=== PATIENT | female | born 1990 | race African-American/Black ===

== ENCOUNTER 2018-05-15 11:43 | Inpatient (IN) | payer OTHER ==
[2018-05-15 12:05] VITALS: BMI 16.5
--- NOTE | 2018-05-15 13:44 | HP ---
Admission [facility] Chief Complaint: I WANT TO GO TO REHAB STRONG RECOMMEND THE PATIENT TO OBTAIN ART MEDICATION WHILE IN REHAB Allergies/Adverse Reactions: Allergies Allergy/AdvReac Type Severity Reaction Status Date / Time No Known Allergies Allergy Verified 05/15/18 13:50 History of Present Illness: 28 YEARS OLD FEMALE WITH LONG HISTORY OF COCAINE NICOTINE DEPENDENCE HAS HIV NONE COMPLIANCE WITH ART IS ADMITTED TO REHAB Exam Limitations: No Limitations - Ebola screening Have you traveled outside of the country in the last 21 days: No Have you had contact with anyone from an Ebola affected area: No Have you been sick,other than usual withdrawal symptoms: No Do you have a fever: No - Review of Systems Constitutional: Loss of Appetite, Unintentional Wgt. Loss, Unexplained wgt Loss EENT: reports: No Symptoms Reported Respiratory: reports: No Symptoms reported Cardiac: reports: No Symptoms Reported GI: reports: Poor Appetite : reports: No Symptoms Reported Musculoskeletal: reports: No Symptoms Reported Integumentary: reports: No Symptoms Reported Neuro: reports: No Symptoms reported Endocrine: reports: No Symptoms Reported Hematology: reports: No Symptoms Reported Psychiatric: reports: Judgement Intact, Orientated x3, Anxious, Depressed Other Systems: Reviewed and Negative Patient History - Patient Medical History Hx Anemia: Yes (TREATED WITH IRON PILL) Hx Asthma: No Hx Chronic Obstructive Pulmonary Disease (COPD): No Hx Cancer: No Hx Cardiac Disorders: No Hx Congestive Heart Failure: No Hx Hypertension: No Hx Hypercholesterolemia: No Hx Pacemaker: No HX Cerebrovascular Accident: No Hx Seizures: No Hx Dementia: No Hx Diabetes: No Hx Gastrointestinal Disorders: No Hx Liver Disease: No Hx Genitourinary Disorders: No Hx Sexually Transmitted Disorders: No Hx Renal Disease (ESRD): No Hx Thyroid Disease: No Hx Human Immunodeficiency Virus (HIV): Yes (2007) Hx Hepatitis C: No Hx Depression: Yes Hx Suicide Attempt: No Hx Bipolar Disorder: No Hx Schizophrenia: No - Patient Surgical History Past Surgical History: No - PPD History Previous Implant?: Yes Documented Results: Negative w/o proof Implanted On Prior R Admission?: No PPD to be Administered?: Yes - Reproductive History Patient is a Female of Child Bearing Age (11 -55 yrs old): Yes Last Menstrual Period: 05/12/18 Patient : No - Smoking Cessation Smoking history: Current every day smoker Have you smoked in the past 12 months: Yes Aproximately how many cigarettes per day: 30 Cigars Per Day: 0 Hx Chewing Tobacco Use: No Initiated information on smoking cessation: Yes 'Breaking Loose' booklet given: 05/15/18 - Substance & Tx. History Hx Alcohol Use: No Hx Substance Use: Yes Substance Use Type: Cocaine, Marijuana Hx Substance Use Treatment: No (FIRST TIME) Family Disease History - Family Disease History Family Disease History: Respiratory: Sister, Other: Father (LITTLE CONTACT), Mother (LITTLE CONTACT) Admission Physical Exam [facility] - Vital Signs Vital Signs: Vital Signs - 24 hr 05/15/18 12:01 Temperature 97.7 F Pulse Rate 71 Respiratory 18 Rate Blood Pressure 108/64 - Physical General Appearance: Yes: No Apparent Distress, Appropriately Dressed, Thin HEENTM: Yes: Hearing grossly Normal, Normocephalic, Normal Voice, Other (HAS EYE APPOINTMENT FOR EYE GLASSES) Respiratory: Yes: Chest Non-Tender, Lungs Clear, Normal Breath Sounds, No Respiratory Distress, No Accessory Muscle Use Neck: Yes: Supple, Trachea in good position Breast: Yes: Breasts Symetrical, No Discharge Cardiology: Yes: Regular Rhythm, Regular Rate, S1, S2 Abdominal: Yes: Normal Bowel Sounds, Non Tender, Flat Genitourinary: Yes: Within Normal Limits Back: Yes: Normal Inspection Musculoskeletal: Yes: full range of Motion, Gait Steady Extremities: Yes: Normal Inspection, Normal Range of Motion, Non-Tender Neurological: Yes: Fully Oriented, Alert, Motor Strength 5/5, Normal Response, Depressed Affect Integumentary: Yes: Warm Lymphatic: Yes: Within Normal Limits - Diagnostic (1) Cocaine dependence with withdrawal Current Visit: Yes Status: Acute (2) HIV (human immunodeficiency virus infection) Current Visit: Yes Status: Chronic (3) Nicotine dependence Current Visit: Yes Status: Acute Qualifiers: Nicotine product type: cigarettes Substance use status: in withdrawal Qualified Code(s): F17.213 - Nicotine dependence, cigarettes, with withdrawal (4) Anemia Current Visit: Yes Status: Chronic Qualifiers: Anemia type: iron deficiency Comment: TAKING IORN PILL AT HOME LAB PENDING (5) Weight loss Current Visit: Yes Status: Acute (6) Anxiety and depression Current Visit: Yes Status: Suspected Cleared for Admission [facility] - Detox or Rehab [facility] Level of Care: Observation Bed Detox Regimen/Protocol: Not Applicable Claeared for Rehab Admission: Yes [facility] Breath Alcohol Content Breath Alcohol Content: 0 Urine Pregancy Test - Result Urine Test Results: Negative- NO Line Present Urine Drug Screen - Control Is Test Valid: Yes - Results Drug Screen Negative: No Urine Drug Screen Results: THC-Marijuana, PADMINI-Cocaine Inpatient Rehab Admission - Initial Determination Are CD services needed?: Yes Free of communicable disease: Yes Not in need of hospitalization: Yes - Rehab Admission Criteria Previous failed treatment: Yes Poor recovery environment: Yes Comorbidities: Yes Lacks judgement: No Patient is meeting Inpatient Rehab admission criteria:: Yes
[2018-05-15] MEDS ORDERED: ACETAMINOPHEN 325 MG TABLET (FP) PO PRN (13:55)
[2018-05-15] MEDS ORDERED: LOPERAMIDE HCL 2 MG CAPSULE PO PRN (13:55)
[2018-05-15] MEDS ORDERED: guaiFENesin/D-METHORPHAN HB 10 ML UNIT-DOSE CUPS PO PRN (13:55)
[2018-05-15] MEDS ORDERED: P-EPHED 60MG/TRIPROLIDI 2.5MG TABLET PO PRN (13:55)
[2018-05-15] MEDS ORDERED: MENTHOL/PHENOL 1 EACH UD MM PRN (13:55)
[2018-05-15] MEDS ORDERED: MAGNESIUM CITRATE 300 ML BOTTLE PO PRN (13:55)
[2018-05-15] MEDS ORDERED: MAGNESIUM HYDROX 2400MG/30ML ORAL SUSPENSION 30 ML CUP PO PRN (13:55)
[2018-05-15] MEDS ORDERED: MAG HYDROX/AL HYDROX/SIMETH 30 ML UNIT-DOSE CUP PO PRN (13:55)
[2018-05-15] MEDS: NICOTINE 21 MG/24 HOURS TOPICAL PATCH TD SCH (15:53)
[2018-05-15 17:03] LABS: HEMATOCRIT 35.8 % (32.4-45.2); MCH 30.8 pg (25.7-33.7); MCHC 33.5 g/dl (32.0-36.0); MEAN PLT VOLUME 11.1 fl (7.5-11.1); PLATELET COUNT 196 K/MM3 (134-434); RBC 3.89 M/mm3 (3.60-5.2); RDW 14.5 % (11.6-15.6); WHITE BLOOD COUNT 5.5 K/mm3 (4.0-10.0)
[2018-05-15 17:48] LABS: ALBUMIN 3.4 g/dl (3.4-5.0); ANION GAP 3 (8-16); BLOOD UREA NITROGEN 12 mg/dL (7-18); CALCIUM 8.5 mg/dL (8.5-10.1); CHLORIDE 107 mmol/L (98-107); CO2 30 mmol/L (21-32); CREATININE 0.9 mg/dL (0.55-1.02); GLUCOSE,RANDOM 90 mg/dL (74-106); POTASSIUM 4.5 mmol/L (3.5-5.1); SGOT/AST 21 U/L (15-37); SGPT/ALT 26 U/L (12-78); SODIUM 140 mmol/L (136-145)
[2018-05-15 17:50] LABS: ALK PHOS 66 U/L (45-117); BILIRUBIN,TOTAL 0.2 mg/dL (0.2-1.0); TOT PROT 7.2 g/dl (6.4-8.2)
[2018-05-15 18:11] LABS: URINE APPEARANCE SLCLOUDY; URINE BILIRUBIN NEGATIVE (<2.0 mg/dL); URINE COLOR YELLOW; URINE GLUCOSE (UA) NEGATIVE (NEGATIVE); URINE KETONE NEGATIVE (NEGATIVE); URINE LEUK ESTERASE TRACE (NEGATIVE); URINE NITRITE NEGATIVE (NEGATIVE); URINE PROTEIN NEGATIVE (NEGATIVE)
[2018-05-15 18:45] LABS: EPI CELLS FEW /HPF (FEW); URINE BACTERIA RARE /hpf (NONE SEEN); URINE MUCUS MODERATE
[2018-05-15] MEDS: THIAMINE HCL 100 MG TABLET (FP) PO SCH (21:02)
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
[2018-05-16] MEDS: NICOTINE 21 MG/24 HOURS TOPICAL PATCH TD SCH (09:36)
[2018-05-16] MEDS: PRENATAL VITAMINS W/ FOLIC ACID TABLET (FP) PO SCH (09:36)
--- NOTE | 2018-05-16 09:49 | EKG ---
Test Reason : Blood Pressure : / mmHG Vent. Rate : 067 BPM Atrial Rate : 067 BPM P-R Int : 132 ms QRS Dur : 090 ms QT Int : 422 ms P-R-T Axes : 014 072 063 degrees QTc Int : 445 ms NORMAL SINUS RHYTHM INCOMPLETE RBBB NO PREVIOUS ECGS AVAILABLE Confirmed by ARNOL DRAKE MD ([id number]) on 05/16/2018 9:49:22 AM Referred By: Confirmed By:ARNOL DRAKE MD
[2018-05-16] MEDS: ESCITALOPRAM OXALATE 10 MG TABLET (FP) PO SCH (11:39)
[2018-05-16] MEDS ORDERED: SUVOREXANT 10 MG TABLET PO PRN (22:00)
[2018-05-16] MEDS: THIAMINE HCL 100 MG TABLET (FP) PO SCH (23:52)
[2018-05-17] MEDS: PRENATAL VITAMINS W/ FOLIC ACID TABLET (FP) PO SCH (09:38)
[2018-05-17] MEDS: NICOTINE 21 MG/24 HOURS TOPICAL PATCH TD SCH (09:38)
[2018-05-17] MEDS: ESCITALOPRAM OXALATE 10 MG TABLET (FP) PO SCH (09:38)
[2018-05-17] MEDS: IBUPROFEN 400 MG TABLET (FP) PO PRN (20:55)
[2018-05-17] MEDS: THIAMINE HCL 100 MG TABLET (FP) PO SCH (23:18)
[2018-05-18] MEDS: ESCITALOPRAM OXALATE 10 MG TABLET (FP) PO SCH (09:54)
[2018-05-18] MEDS: NICOTINE 21 MG/24 HOURS TOPICAL PATCH TD SCH (09:54)
[2018-05-18] MEDS: PRENATAL VITAMINS W/ FOLIC ACID TABLET (FP) PO SCH (09:54)
[2018-05-18] MEDS: THIAMINE HCL 100 MG TABLET (FP) PO SCH (21:26)
[2018-05-18] MEDS: MELATONIN 5 MG TABLETS PO PRN (21:26)
[2018-05-18] MEDS: IBUPROFEN 400 MG TABLET (FP) PO PRN (22:50)
[2018-05-19] MEDS: ESCITALOPRAM OXALATE 10 MG TABLET (FP) PO SCH (10:55)
[2018-05-19] MEDS: NICOTINE 21 MG/24 HOURS TOPICAL PATCH TD SCH (10:55)
[2018-05-19] MEDS: PRENATAL VITAMINS W/ FOLIC ACID TABLET (FP) PO SCH (10:55)
[2018-05-19] MEDS: MELATONIN 5 MG TABLETS PO PRN (21:31)
[2018-05-19] MEDS: IBUPROFEN 400 MG TABLET (FP) PO PRN (21:31)
[2018-05-19] MEDS: THIAMINE HCL 100 MG TABLET (FP) PO SCH (21:31)
[2018-05-20] MEDS: NICOTINE 21 MG/24 HOURS TOPICAL PATCH TD SCH (09:54)
[2018-05-20] MEDS: ESCITALOPRAM OXALATE 10 MG TABLET (FP) PO SCH (09:54)
[2018-05-20] MEDS: PRENATAL VITAMINS W/ FOLIC ACID TABLET (FP) PO SCH (09:54)
[2018-05-20] MEDS: NICOTINE POLACRILEX 4 MG GUM BUC PRN (14:46)
[2018-05-20] MEDS: THIAMINE HCL 100 MG TABLET (FP) PO SCH (21:29)
[2018-05-20] MEDS: IBUPROFEN 400 MG TABLET (FP) PO PRN (21:29)
[2018-05-20] MEDS: MELATONIN 5 MG TABLETS PO PRN (21:31)
--- NOTE | 2018-05-21 06:36 | PN ---
Psychiatric Progress Note Vital Signs: Vital Signs Period Temp Pulse Resp BP Sys/Reinoso Pulse Ox Last 24 Hr 97.7 F 71 18-18 101/60 Date of Session: 05/21/18 Chief Complaint:: Discharge Note HPI: Patient addressing Cocaine and Cannabis Dependence comorbid with Nicotine Dependence, Posttraumatic Stress Disorder, Substance-Induced Anxiety Disorder and Substance-Induced Sleep Disorder ROS: Anemia, HIV Current Medications: Active Medications Generic Name Dose Route Start Last Admin Trade Name Freq PRN Reason Stop Dose Admin Acetaminophen 650 mg 05/15/18 13:55 Tylenol - PO Q4H PRN FEVER Al Hydroxide/Mg Hydroxide 30 ml 05/15/18 13:55 Mylanta Oral Suspension - PO Q6H PRN DYSPEPSIA Escitalopram Oxalate 10 mg 05/16/18 10:00 05/20/18 09:54 Lexapro - PO 10 mg DAILY GARRISON Administration Eucalyptus/Menthol/Phenol/Sorbitol 1 each 05/15/18 13:55 Cepastat Lozenge - MM Q4H PRN SORE THROAT Guaifenesin 10 ml 05/15/18 13:55 Robitussin Dm - PO Q6H PRN COUGH Ibuprofen 400 mg 05/15/18 13:55 05/20/18 21:29 Motrin - PO 400 mg Q6H PRN Administration Pain level 4-6 Loperamide HCl 4 mg 05/15/18 13:55 Imodium - PO Q6H PRN DIARRHEA Magnesium Citrate 300 ml 05/15/18 13:55 Citroma - PO Q48H PRN CONSTIPATION Magnesium Hydroxide 30 ml 05/15/18 13:55 Milk Of Magnesia - PO DAILY PRN CONSTIPATION Melatonin 5 mg 05/15/18 22:00 05/20/18 21:31 Melatonin PO 5 mg HS PRN Administration INSOMNIA Nicotine 21 mg 05/15/18 14:30 05/20/18 09:54 Nicoderm Patch - TD 21 mg DAILY GARRISON Administration Nicotine Polacrilex 4 mg 05/15/18 13:55 05/20/18 14:46 Nicorette Gum - BUC 4 mg Q2H PRN Administration NICOTINE REPLACEMENT RX Multivit/Folic Acid/Iron 1 tab 05/16/18 10:00 05/20/18 09:54 Vitamins (Sjr) - PO 1 tab DAILY GARRISON Administration Pseudoephedrine/Triprolidine 1 combo 05/15/18 13:55 Actifed - PO TID PRN NASAL CONGESTION Thiamine HCl 100 mg 05/15/18 22:00 05/20/18 21:29 Vitamin B1 - PO 100 mg HS GARRISON Administration Current Side Effect: No Lab tests ordered: Yes Lab tests reviewed: Yes Provider note:: Patient will complete this program on 05/22/18. She has partially met her treatment goals and will continue to address her issues in terminal computer operator residential treatment at [facility]) at [address] [place] [address]. Told blurb writer that from her participation in this program, she has learned the importance of making meetings and have a sponsor. She responded well to Lexapro 10 mg po daily and Belsomra 10 mg po HS. Scripts for 30 supply of Lexapro will be electronically transmitted to [facility] at [address] [place] [address]. She is stable for discharged on 05/22/18 Total face to face time:: 35 Mental Status Exam - Mental Status Exam Alert and Oriented to: Time, Place, Person Cognitive Function: Fair Patient Appearance: Well Groomed Mood: Hopeful, Euthymic Affect: Appropriate Patient Behavior: Cooperative Speech Pattern: Clear Voice Loudness: Normal Thought Process: Intact, Goal Oriented Thought Disorder: Not Present Hallucinations: Denies Suicidal Ideation: Denies Homicidal Ideation: Denies Insight/Judgement: Fair Sleep: Fair Appetite: Good Muscle strength/Tone: Normal Gait/Station: Normal Psychiatric Treatment Plan - Problem List (1) Cocaine dependence Current Visit: Yes (2) Cannabis dependence Current Visit: Yes (3) Nicotine dependence Current Visit: Yes Qualifiers: Nicotine product type: cigarettes Substance use status: in withdrawal Qualified Code(s): F17.213 - Nicotine dependence, cigarettes, with withdrawal (4) PTSD (post-traumatic stress disorder) Current Visit: Yes (5) Substance-induced anxiety disorder Current Visit: Yes (6) Substance-induced sleep disorder Current Visit: Yes (7) Anemia Current Visit: Yes Qualifiers: Anemia type: iron deficiency Comment: TAKING IORN PILL AT HOME LAB PENDING (8) HIV (human immunodeficiency virus infection) Current Visit: Yes Initial treatment plan: Patient will be discharged tomorrow and referred to [facility] for terminal computer operator residential treatment
[2018-05-21] MEDS: ESCITALOPRAM OXALATE 10 MG TABLET (FP) PO SCH (10:11)
[2018-05-21] MEDS: PRENATAL VITAMINS W/ FOLIC ACID TABLET (FP) PO SCH (10:11)
[2018-05-21] MEDS: NICOTINE 21 MG/24 HOURS TOPICAL PATCH TD SCH (10:11)
[2018-05-21] MEDS: NICOTINE POLACRILEX 4 MG GUM BUC PRN ×2 (10:12→12:58)
[2018-05-21] MEDS: THIAMINE HCL 100 MG TABLET (FP) PO SCH (21:45)
[2018-05-21] MEDS: MELATONIN 5 MG TABLETS PO PRN (21:45)
[2018-05-22 07:05] VITALS: BP 105/69; PULSE 79; TEMP 97.5
[2018-05-22] MEDS: ESCITALOPRAM OXALATE 10 MG TABLET (FP) PO SCH (09:07)
[2018-05-22] MEDS: PRENATAL VITAMINS W/ FOLIC ACID TABLET (FP) PO SCH (09:07)
[2018-05-22] MEDS: NICOTINE 21 MG/24 HOURS TOPICAL PATCH TD SCH (09:07)
[2018-05-22] MEDS: NICOTINE POLACRILEX 4 MG GUM BUC PRN (09:07)
== END 2018-05-22 09:20 | disposition home or self-care (01) | DRG 772 ==
LOC: YASAS 11:43 → Y3W 14:12
PROVIDERS: ADMIT Psychiatry & Neurology Psychiatry; ATTEND Psychiatry & Neurology Psychiatry
PROC: HZ42ZZZ Group Counseling for Substance Abuse Treatment, Cognitive-Behavioral (ICD-10-PCS; principal; 2018-05-17)
DX: F14.20 Cocaine dependence, uncomplicated (principal); F12.20 Cannabis dependence, uncomplicated; F17.213 Nicotine dependence, cigarettes, with withdrawal; F19.280 Other psychoactive substance dependence with psychoactive substance-induced anxiety disorder; F19.282 Other psychoactive substance dependence with psychoactive substance-induced sleep disorder; F43.10 Post-traumatic stress disorder, unspecified; F41.8 Other specified anxiety disorders; Z21 Asymptomatic human immunodeficiency virus [HIV] infection status; D50.9 Iron deficiency anemia, unspecified; R63.4 Abnormal weight loss; Z68.1 Body mass index [BMI] 19.9 or less, adult
CPT/HCPCS: 36415; 80053; 81003; 81015; 85027; 86593; 93005; 93010